=== PATIENT | female | born 1985 | race Caucasian/White ===

== ENCOUNTER 2023-05-12 17:58 | Emergency (ER) | payer BC, SELFPAY ==
[2023-05-12 18:27] VITALS: BP 137/79; PULSE 70; RESP 18; TEMP 37.3; O2SAT 100; BMI 25.7
--- NOTE | 2023-05-12 19:05 | CRLHL7_ITS ---
For Patients: As a result of the Century Cures Act, medical imaging exams and procedure reports are released immediately into your electronic medical record. You may view this report before your referring provider. If you have questions, please contact your health care provider. INDICATION: Spotting, gestational age by LMP is 10 weeks 4 days TECHNIQUE: Ultrasound OB pelvis transvaginal. Real-time dwyer-scale and color Doppler imaging of the pelvis was performed. COMPARISON: None FINDINGS: Sonographic imaging demonstrates a single intrauterine gestational sac measuring 2.0 cm corresponding to a gestational age of 6 weeks 6 days. No pole or yolk sac seen within the gestational sac. The ovaries are of normal size. There are no suspicious fluid collections noted in the cul-de-sac. IMPRESSION: There is an intrauterine fluid collection that may represent a gestational sac. No pole or yolk sac is identified. The presumed gestational sac size measures 2.0 cm corresponding to a gestational age of 6 weeks 6 days. Recommend follow-up ultrasound in 2 weeks to evaluate for presence of pole. Dictated by Sarah Be MD @ 05/12/2023 9:06:08 PM (Electronically Signed)
--- NOTE | 2023-05-12 19:44 | ED_ITS ---
HPI - General Adult General Date Seen: 05/12/23 Chief complaint: Vaginal Bleeding Stated complaint: 10 weeks preg, bleeding and cramping Time Seen by Provider: 05/12/23 18:31 Source: patient Mode of arrival: ambulatory Limitations: no limitations History of Present Illness HPI narrative: Patient is a 37-year-old woman who presents with some spotting starting today. She is 10 weeks by dates. She says that she had an ultrasound done at 8 weeks at her clinic [place], they did not see a heartbeat at that time but she says that her doctor there told her that was completely normal. It was a transabdominal scan done primarily to make sure that it was an intrauterine . She relates lot of anxieties about this , apparently she had bacterial vaginosis which was treated and then developed yeast infection and then used Monistat and then was told she had Citrobacter in her vagina which according to her research online is not good for the baby, and so she is now started on Augmentin. She has 6 children prior to this. She has had some mild cramping. No heavy bleeding, clots, or passage of tissue. Blood type is O- positive. Related Data Home Medications Medication Instructions Recorded Confirmed amoxicillin 500 mg-potassium 1 tab PO BID 05/12/23 05/12/23 clavulanate 125 mg tablet (Augmentin) Allergies Allergy/AdvReac Type Severity Reaction Status Date / Time minocycline Allergy Verified 05/12/23 18:27 Review of Systems Status of ROS: Reports: 6 or more systems reviewed and unremarkable except as noted in History and below PFSH PFS Social History Smoking Status: Never smoker Do you use any of these nicotine containing products: None Second hand tobacco smoke exposure: Yes How often do you have a drink containing alcohol: never How often do you have six or more drinks on one occasion: Never AUDIT-C Alcohol total score: 0 Non-prescribed substance use: denies use service: No Exam Narrative: Exam Narrative: Vital signs as noted above. In general, an alert, well-appearing patient. Head: Normocephalic, atraumatic. Eyes: Pupils are equal reactive. Extraocular movements are full. Conjunctivae are normal. ENT: Mucous membranes are moist. Throat is normal. Neck: Supple without lymphadenopathy. Heart: Regular rate and rhythm. No murmur or rub. Lungs: Clear bilaterally. No increased work of breathing, crackles or wheezes. Abdomen: Soft and nontender. No organomegaly. Extremities: Well perfused. No edema. No calf tenderness. Pulses intact. Neurologic: Patient is alert and oriented to person and place. Speech is fluent. Face is symmetric. Moves all extremities equally. Affect: Normal. Skin: Warm and dry. Well perfused. Const: Vital Signs, click to edit/add: Vital Signs - 24 hr 05/12/23 18:27 Temperature 99.1 F Pulse Rate [Pulse Oximeter] 70 Respiratory Rate 18 Blood Pressure [[facility] Upper Arm] 137/79 Pulse Oximetry 100 Oxygen Delivery Me thod Room Air Course Course Hospital Course: I looked with the bedside ultrasound here. She showed me the picture taken 2 weeks ago which did show what looks like a pole. Today, I do not see anything trans abdominally. There is some fluid in the uterus but I do not see a gestational sac, yolk sac, pole or any other obvious findings of in the uterus. I have recommended that we do a transvaginal scan to confirm. I have also ordered a quantitative hCG. These are pending. Beta-hCG is greater than 15,000, being diluted. The preliminary radiology read of her ultrasound is of a gestational sac with no other findings, consistent with my ultrasound. Awaiting the final radiology read, but essentially this is likely a near complete miscarriage. She should follow-up with her clinic to ensure that beta hCG continues to fall. Final radiology read is of a gestational sac, no pole or yolk sac, consistent with 6 weeks and 6 days by measurements. However, given that the patient is certain of her dates of 10 weeks, and given that a couple of weeks ago her ultrasound did show a pole, I have reviewed with her that I do not think that this is a viable . I think she will go on to have a miscarriage. Anticipate have your bleeding cramping, likely little heavier than a period. For severe bleeding or cramping she should be seen again. Vital Signs Vital signs: Initial Vital Signs Temperature 99.1 F 05/12/23 18:27 Temperature Source Temporal Artery Scan 05/12/23 18:27 Pulse Rate 70 05/12/23 18:27 Pulse Rhythm Regular 05/12/23 18:27 Respiratory Rate 18 05/12/23 18:27 Blood Pressure 137/79 05/12/23 18:27 Blood Pressure Mean 98 05/12/23 18:27 Blood Pressure Position Sitting 05/12/23 18:27 Pulse Oximetry 100 05/12/23 18:27 Oxygen Delivery Method Room Air 05/12/23 18:27 Vital Signs Temperature 99.1 F 05/12/23 18:27 Pulse Rate 70 05/12/23 18:27 Respiratory Rate 18 05/12/23 18:27 Blood Pressure 137/79 05/12/23 18:27 Pulse Oximetry 100 05/12/23 18:27 Oxygen Delivery Method Room Air 05/12/23 18:27 Temperature 99.1 F 05/12/23 18:27 Pulse Rate 70 05/12/23 18:27 Respiratory Rate 18 05/12/23 18:27 Blood Pressure 137/79 05/12/23 18:27 Pulse Oximetry 100 05/12/23 18:27 Oxygen Delivery Method Room Air 05/12/23 18:27 Medical Decision Making Lab Data Labs: Lab Results 05/12/23 Range/Units 19:30 HCG, Quant 06447.00 mIU/mL Discharge Plan Discharge Clinical Impression: Incomplete Patient Disposition: Home, Self-Care Condition: Stable Instructions: Miscarriage (ED) Additional Instructions: Your ultrasound today does not show any evidence of in the uterus. You may have more bleeding and cramping, but I do not expect severe symptoms based on how the ultrasound looks. You should be seen again if severe symptoms develop. Follow-up with your clinic next week for repeat beta-hCG. You can take ibuprofen or Tylenol if needed. Prescriptions: No Action amoxicillin-pot clavulanate [Augmentin] 500-125 mg tablet 1 tab PO BID Patient Comments: takes 875amoxicillin. Stand Alone Forms: [employer] Info Instructions
== END 2023-05-12 21:40 | disposition home or self-care (01) ==
PROVIDERS: Emergency Provider Emergency Medicine
DX: O03.4 Incomplete spontaneous abortion without complication (principal)
CPT/HCPCS: 36415; 76817; 84702; 99284